=== PATIENT | female | born 1950 | race Caucasian/White ===

== ENCOUNTER → 2016-02-28 | Outpatient (CLI) | payer MEDICARE, MEDICAID ==
[2016-02-28] VITALS (11 sets, daily range): BP systolic 96–118; BP diastolic 60–80
[~2016-02-28] VITALS: Ht 30.5 cm; Wt 74.0 kg
[~2016-02-28] MED LIST: ALPR1TAB7 PO; CARV6.2551; CHOL20009 PO; CYAN100L PO; CYANOCOBALAMIN (B-12) 1000 MCG/1 ML VIAL IM ONE; CYANOCOBALAMIN (B-12) 1000 MCG/1 ML VIAL ONE; DIGO0.1262 PO; DOBUTamine 1000MCG/ML 250 ML IV ONE; FOLI1TAB6 PO; FURO20TA3 PO; LISI10TA6 PO; MULTTAB61 PO
[2016-02-28 16:21] LABS: Basophils # (auto) 0.1 uL; DEFINITIVE VIEW TRANSMISSION; Eosinophils # (auto) 0 uL; Eosinophils % (auto) 0.5 % (0.0-7.0); Hematocrit 36.4 % (36.0-46.0); Hemoglobin 11.1 g/dL (12.2-16.2); Lymphocytes # (auto) 1.3 uL; Lymphocytes % (auto) 16.5 % (10.0-50.0); Mean Corpuscular Hemoglobin 19.7 pg (28.0-32.0); Mean Corpuscular Hgb Conc. 30.6 g/dL (32.0-36.0); Mean Corpuscular Volume 64.3 fL (80.0-100.0); Mean Platelet Volume 9.6 fL (7.4-10.4); Monocytes # (auto) 0.8 uL; Monocytes % (auto) 9.5 % (0.0-12.0); Neutrophils # (auto) 5.8 uL; Neutrophils % (auto) 72.5 % (37.0-80.0); Platelet Count (auto) 216 10^3/uL (140-450); Red Cell Distribution Width 16.2 % (11.6-16.0)
== END | disposition home or self-care (01) ==
LOC: CHF HDHVI 10:49
PROVIDERS: ATTEND Internal Medicine Cardiovascular Disease
DX: T46.0X6D Underdosing of cardiac-stimulant glycosides and drugs of similar action, subsequent encounter (principal); D64.9 Anemia, unspecified
CPT/HCPCS: 36415; 80162; 85025; 96365; 96366; 96372; G0463

== ENCOUNTER → 2016-09-03 | Outpatient (CLI) | payer MEDICARE, MEDICAID ==
[~2016-09-03] MED LIST changes: -CYANOCOBALAMIN (B-12) 1000 MCG/1 ML VIAL IM ONE; -CYANOCOBALAMIN (B-12) 1000 MCG/1 ML VIAL ONE; -DOBUTamine 1000MCG/ML 250 ML IV ONE
[2016-09-03 15:00] VITALS: BP 152/88
[2016-09-03 17:15] VITALS: BP 139/82
== END | disposition home or self-care (01) ==
LOC: CHF HDHVI 16:41
PROVIDERS: ATTEND Internal Medicine Cardiovascular Disease
DX: R07.9 Chest pain, unspecified (principal)
CPT/HCPCS: G0463

== ENCOUNTER → 2016-10-13 | Outpatient (CLI) | payer MEDICARE, MEDICAID ==
[~2016-10-13] MED LIST changes: +CYANOCOBALAMIN (B-12) 1000 MCG/1 ML VIAL IM ONE; +CYANOCOBALAMIN (B-12) 1000 MCG/1 ML VIAL ONE
[2016-10-13 12:20] VITALS: BP 138/74
[2016-10-13 12:45] VITALS: BP 130/72
[2016-10-13 16:11] LABS: Basophils # (auto) 0.1 uL; Basophils % (auto) 1.1 % (0.0-2.0); CONDITION Y; DEFINITIVE SEE PRINTOUT; Eosinophils # (auto) 0 uL; Eosinophils % (auto) 0.1 % (0.0-7.0); Hematocrit 26.1 % (36.0-46.0); Lymphocytes # (auto) 0.7 uL; Lymphocytes % (auto) 11.1 % (10.0-50.0); Mean Corpuscular Hgb Conc. 30.7 g/dL (32.0-36.0); Mean Corpuscular Volume 65.1 fL (80.0-100.0); Mean Platelet Volume 10.9 fL (7.4-10.4); Monocytes # (auto) 0.6 uL; Monocytes % (auto) 9.9 % (0.0-12.0); Neutrophils % (auto) 77.8 % (37.0-80.0); Platelet Count (auto) 334 10^3/uL (140-450); Red Cell Distribution Width 16.8 % (11.6-16.0); SUSPECT SEE PRINTOUT; White Blood Cell 6.5 10^3/uL (4.4-10.8)
[2016-10-13 16:32] LABS: Albumin 4.2 g/dL (3.4-5.0); BUN/Creatinine Ratio 19.2; Bilirubin, Total 0.6 mg/dL (0.2-1.0); Calcium 9.3 mg/dL (8.5-10.1); Magnesium 2.2 mg/dL (1.6-2.6); Potassium 4.2 mmol/L (3.5-5.1); Total Protein 7.5 g/dL (6.4-8.2)
== END | disposition home or self-care (01) ==
LOC: CHF HDHVI 12:22
PROVIDERS: ATTEND Internal Medicine Cardiovascular Disease
DX: I25.10 Atherosclerotic heart disease of native coronary artery without angina pectoris (principal); I13.0 Hypertensive heart and chronic kidney disease with heart failure and stage 1 through stage 4 chronic kidney disease, or unspecified chronic kidney disease; I50.9 Heart failure, unspecified; N18.9 Chronic kidney disease, unspecified; D64.9 Anemia, unspecified; E55.9 Vitamin D deficiency, unspecified
CPT/HCPCS: 36415; 80053; 82306; 83735; 85025; 96372; G0463; J3420

== ENCOUNTER → 2017-03-17 | Outpatient (CLI) | payer MEDICARE, MEDICAID ==
[~2017-03-17] MED LIST changes: -CYANOCOBALAMIN (B-12) 1000 MCG/1 ML VIAL IM ONE; -CYANOCOBALAMIN (B-12) 1000 MCG/1 ML VIAL ONE
[2017-03-17 11:10] VITALS: BP 152/78
[2017-03-17 16:23] LABS: Basophils # (auto) 0.1 uL; Basophils % (auto) 1.3 % (0.0-2.0); Eosinophils # (auto) 0.1 uL; Eosinophils % (auto) 0.9 % (0.0-7.0); Hematocrit 23.3 % (36.0-46.0); Hemoglobin 7.1 g/dL (12.2-16.2); Lymphocytes # (auto) 0.7 uL; Mean Corpuscular Hemoglobin 19.4 pg (28.0-32.0); Mean Corpuscular Hgb Conc. 30.4 g/dL (32.0-36.0); Mean Corpuscular Volume 63.7 fL (80.0-100.0); Monocytes # (auto) 0.4 uL; Monocytes % (auto) 6.1 % (0.0-12.0); Neutrophils % (auto) 81.7 % (37.0-80.0); Nucleated Red Blood Cells % 0.2 %; Platelet Count (auto) 279 10^3/uL (140-450); Red Blood Cells 3.66 10^6/uL (4.0-5.20); White Blood Cell 7.3 10^3/uL (4.4-10.8)
[2017-03-17 16:29] LABS: Potassium 3.8 mmol/L (3.5-5.1)
[2017-03-17 16:36] LABS: Ferritin 79.2 ng/mL (10-322)
[2017-03-17 16:37] LABS: Folate (Folic Acid) > 24.00 ng/mL (5.38-24)
== END | disposition home or self-care (01) ==
LOC: CHF HDHVI 11:35
PROVIDERS: ATTEND Internal Medicine Cardiovascular Disease
DX: E55.9 Vitamin D deficiency, unspecified (principal); D64.9 Anemia, unspecified; E87.5 Hyperkalemia; E61.1 Iron deficiency; R94.4 Abnormal results of kidney function studies; R79.89 Other specified abnormal findings of blood chemistry; D51.9 Vitamin B12 deficiency anemia, unspecified; D52.9 Folate deficiency anemia, unspecified; I50.9 Heart failure, unspecified
CPT/HCPCS: 36415; 82306; 82565; 82607; 82728; 82746; 83540; 83735; 84132; 84520; 85025; 85045; 93701; G0463

== ENCOUNTER → 2017-03-19 | Outpatient (CLI) | payer MEDICARE, MEDICAID ==
[~2017-03-19] VITALS: Ht 170.2 cm; Wt 69.9 kg
[2017-03-20] VITALS (10 sets, daily range): BP systolic 136–169; BP diastolic 78–98
== END | disposition home or self-care (01) ==
LOC: LAB 13:10
PROVIDERS: ATTEND Internal Medicine Cardiovascular Disease
DX: I10 Essential (primary) hypertension (principal)
CPT/HCPCS: 86850; 86900; 86901; 86920

== ENCOUNTER 2017-03-20 08:23 | Day surgery (SDC) | payer MEDICARE, MEDICAID ==
[2017-03-20] MEDS ORDERED: CARVEDILOL 3.125 MG TAB PO ONE (11:15)
[2017-03-20] MEDS ORDERED: FUROSEMIDE 20 MG/2 ML VIAL IV ONE (11:15)
== END 2017-03-20 15:40 | disposition home or self-care (01) ==
LOC: CATH 08:23
PROVIDERS: ATTEND Internal Medicine Cardiovascular Disease
DX: D64.9 Anemia, unspecified (principal)
CPT/HCPCS: 36430; J1940; J7040

== ENCOUNTER → 2017-04-01 | Outpatient (CLI) | payer MEDICARE, MEDICAID ==
[~2017-04-01] VITALS: Ht 170.2 cm; Wt 70.3 kg
[~2017-04-01] MED LIST changes: +ADENOSINE 59 MG in GIVE UN-DILUTED 0 ML IV ONE; +ADENOSINE 90 MG/30 ML INJ IV ONE
[2017-04-01 12:46] LABS: % Iron Saturation 40.8 % (15-50)
[2017-04-01 12:57] LABS: Ferritin 140.9 ng/mL (10-322)
== END | disposition home or self-care (01) ==
LOC: Rad HDHVI 08:06
PROVIDERS: ATTEND Internal Medicine Cardiovascular Disease
DX: I25.10 Atherosclerotic heart disease of native coronary artery without angina pectoris (principal); D64.9 Anemia, unspecified; R07.9 Chest pain, unspecified; D52.9 Folate deficiency anemia, unspecified; D51.9 Vitamin B12 deficiency anemia, unspecified; R79.89 Other specified abnormal findings of blood chemistry; N19 Unspecified kidney failure; Z94.1 Heart transplant status
CPT/HCPCS: 36415; 78452; 82607; 82728; 83540; 83550; 85045; 93005; 96374; 96375; A9500; J0153

== ENCOUNTER → 2017-04-20 | Outpatient (CLI) | payer MEDICARE, MEDICAID ==
[~2017-04-20] MED LIST changes: -ADENOSINE 59 MG in GIVE UN-DILUTED 0 ML IV ONE; -ADENOSINE 90 MG/30 ML INJ IV ONE
[2017-04-20 16:30] LABS: Basophils # (auto) 0.1 uL; Eosinophils # (auto) 0 uL; Eosinophils % (auto) 0.4 % (0.0-7.0); Mean Corpuscular Hemoglobin 20.5 pg (28.0-32.0); Monocytes # (auto) 0.4 uL
[2017-04-20 16:31] LABS: Basophils % (auto) 0.7 % (0.0-2.0); Hematocrit 30.3 % (36.0-46.0); Hemoglobin 9.3 g/dL (12.2-16.2); Lymphocytes # (auto) 0.9 uL; Lymphocytes % (auto) 9.6 % (10.0-50.0); Mean Corpuscular Hgb Conc. 30.6 g/dL (32.0-36.0); Mean Corpuscular Volume 67.1 fL (80.0-100.0); Monocytes % (auto) 3.9 % (0.0-12.0); Neutrophils # (auto) 8.4 uL; Neutrophils % (auto) 85.4 % (37.0-80.0); Nucleated Red Blood Cells % 0.2 %; Platelet Count (auto) 237 10^3/uL (140-450); Red Blood Cells 4.51 10^6/uL (4.0-5.20); White Blood Cell 9.8 10^3/uL (4.4-10.8)
[2017-04-20 16:35] LABS: Red Cell Distribution Width 20.5 % (11.8-14.3)
[2017-04-20 16:42] LABS: Albumin 4.1 g/dL (3.4-5.0); BUN/Creatinine Ratio 17.7; Bilirubin, Direct 0.1 mg/dL (0-0.2); Bilirubin, Total 0.5 mg/dL (0.2-1.0); Calcium 9.6 mg/dL (8.5-10.1); Potassium 3.8 mmol/L (3.5-5.1); Total Protein 7.7 g/dL (6.4-8.2)
== END | disposition home or self-care (01) ==
LOC: LAB 12:50
PROVIDERS: ATTEND Internal Medicine Cardiovascular Disease
DX: I10 Essential (primary) hypertension (principal); D50.8 Other iron deficiency anemias; D64.9 Anemia, unspecified; E78.00 Pure hypercholesterolemia, unspecified; K74.1 Hepatic sclerosis
CPT/HCPCS: 36415; 80053; 80061; 80076; 82668; 85025

== ENCOUNTER → 2017-05-04 | Outpatient (CLI) | payer MEDICARE, MEDICAID ==
[2017-05-04 13:00] VITALS: BP 130/72
[2017-05-04 16:08] LABS: Basophils # (auto) 0.1 uL; Eosinophils # (auto) 0.1 uL; Hematocrit 25.6 % (36.0-46.0); Hemoglobin 8.1 g/dL (12.2-16.2); Lymphocytes # (auto) 0.9 uL; White Blood Cell 7.1 10^3/uL (4.4-10.8)
[2017-05-04 16:11] LABS: Basophils % (auto) 1.2 % (0.0-2.0); Eosinophils % (auto) 0.9 % (0.0-7.0); Lymphocytes % (auto) 13.3 % (10.0-50.0); Mean Corpuscular Hemoglobin 20.5 pg (28.0-32.0); Mean Corpuscular Hgb Conc. 31.5 g/dL (32.0-36.0); Monocytes # (auto) 0.5 uL; Monocytes % (auto) 6.9 % (0.0-12.0); Neutrophils # (auto) 5.5 uL; Neutrophils % (auto) 77.7 % (37.0-80.0); Nucleated Red Blood Cells % 0.3 %; Platelet Count (auto) 219 10^3/uL (140-450); Red Blood Cells 3.94 10^6/uL (4.0-5.20); Red Cell Distribution Width 19.5 % (11.8-14.3)
[2017-05-04 16:21] LABS: Albumin 3.7 g/dL (3.4-5.0); BUN/Creatinine Ratio 20.4; Bilirubin, Total 0.5 mg/dL (0.2-1.0); Magnesium 2.4 mg/dL (1.6-2.6); Phosphorus 3.9 mg/dL (2.5-4.90); Potassium 4.1 mmol/L (3.5-5.1)
== END | disposition home or self-care (01) ==
LOC: CHF HDHVI 12:28
PROVIDERS: ATTEND Internal Medicine Cardiovascular Disease
DX: I10 Essential (primary) hypertension (principal); D64.9 Anemia, unspecified; E83.30 Disorder of phosphorus metabolism, unspecified; E83.40 Disorders of magnesium metabolism, unspecified; Z94.1 Heart transplant status
CPT/HCPCS: 36415; 80053; 80197; 83735; 84100; 85025

== ENCOUNTER → 2017-08-17 | Outpatient (CLI) | payer MEDICARE, MEDICAID | END | disposition home or self-care (01) | LOC: Rad HDHVI 16:16 | PROVIDERS: ATTEND Internal Medicine Cardiovascular Disease | DX: D09.9 Carcinoma in situ, unspecified (principal); I13.0 Hypertensive heart and chronic kidney disease with heart failure and stage 1 through stage 4 chronic kidney disease, or unspecified chronic kidney disease; I50.21 Acute systolic (congestive) heart failure; N18.9 Chronic kidney disease, unspecified; I25.10 Atherosclerotic heart disease of native coronary artery without angina pectoris; E78.00 Pure hypercholesterolemia, unspecified | CPT/HCPCS: 71275; 74178 ==

== ENCOUNTER → 2017-08-25 | Outpatient (CLI) | payer MEDICARE, MEDICAID ==
[2017-08-25 13:55] VITALS: BP 159/84
[2017-08-25 14:24] VITALS: BP 141/93
[2017-08-25 16:11] LABS: BUN/Creatinine Ratio 17.8; Calcium 9.3 mg/dL (8.5-10.1); Potassium 4.1 mmol/L (3.5-5.1)
[2017-08-25 16:14] LABS: Hemoglobin 8.2 g/dL (12.2-16.2); Mean Corpuscular Hemoglobin 19.9 pg (28.0-32.0); Red Blood Cells 4.14 10^6/uL (4.0-5.20); White Blood Cell 5.9 10^3/uL (4.4-10.8)
[2017-08-25 16:17] LABS: Hematocrit 26.3 % (36.0-46.0); Mean Corpuscular Hgb Conc. 31.3 g/dL (32.0-36.0); Mean Corpuscular Volume 63.5 fL (80.0-100.0); Platelet Count (auto) 230 10^3/uL (140-450); Red Cell Distribution Width 16.4 % (11.8-14.3)
[2017-08-25 16:36] LABS: Basophils % (manual) 0 (0.0-2.0); Blast Cells 0; Metamyelocytes % 0; Myelocytes % 0; Promyelocytes % 0; Reactive Lymphocytes 0
[2017-08-25 17:43] LABS: Band Neutrophils % (manual) 1; Eosinophils % (manual) 2 (0-7); Lymphocytes % (manual) 10 (10.0-50.0); Monocytes % (manual) 8 (0-12)
== END | disposition home or self-care (01) ==
LOC: CHF HDHVI 14:05
PROVIDERS: ATTEND Internal Medicine Cardiovascular Disease
DX: R91.1 Solitary pulmonary nodule (principal); I11.0 Hypertensive heart disease with heart failure; I50.9 Heart failure, unspecified; E55.9 Vitamin D deficiency, unspecified; D64.9 Anemia, unspecified; I25.10 Atherosclerotic heart disease of native coronary artery without angina pectoris; E78.00 Pure hypercholesterolemia, unspecified; Z94.1 Heart transplant status; Z79.899 Other long term (current) drug therapy
CPT/HCPCS: 36415; 80048; 80197; 82306; 85007; 85027; G0463

== ENCOUNTER → 2018-08-25 | Outpatient (CLI) | payer MEDICARE, MEDICAID | END | disposition home or self-care (01) | LOC: Rad HDHVI 09:29 | PROVIDERS: ATTEND Internal Medicine Cardiovascular Disease | DX: I25.10 Atherosclerotic heart disease of native coronary artery without angina pectoris (principal); I77.819 Aortic ectasia, unspecified site | CPT/HCPCS: 71250 ==

== ENCOUNTER → 2018-12-15 | Outpatient (CLI) | payer MEDICARE, MEDICAID ==
[~2018-12-15] MED LIST changes: +cefTRIAXone 1GM/50ML D5W 50 ML IV ONE; +cefTRIAXone SOD 1,000 MG VL ONE
--- NOTE | 2018-12-15 12:37 | NUR ---
PT. TO CLINIC FROM BACK OFFICE FOR IVPB ABX PER DR. CORDERO FOR MULTIPLE DAYS. PT HX. KNOWN TO THIS RN AND IS A HEART TRANSPLANT PT. ORDERS RECEIVED AND CARRIED OUT.
[2018-12-15 12:40] VITALS: BP 139/68
--- NOTE | 2018-12-15 12:42 | NUR ---
IV insertion IV access obtained, via clean sterile technique by inserting 22 gauge catheter at after attempt(s). IV secured properly. No trauma to site. Patient tolerated procedure well. LABS DRAWN AND SENT.
--- NOTE | 2018-12-15 13:00 | NUR ---
PT. TO AND FROM XRAY VIA AMBULATION. IV ABX STARTED PER MD ORDER.
[2018-12-15 13:38] LABS: Basophils # (auto) 0.1 uL; Eosinophils # (auto) 0.1 uL; Mean Corpuscular Volume 58.1 fL (80.0-100.0); Red Cell Distribution Width 16.4 % (11.8-14.3)
[2018-12-15 13:40] LABS: Basophils % (auto) 0.9 % (0.0-2.0); Eosinophils % (auto) 0.7 % (0.0-7.0); Hematocrit 26.2 % (36.0-46.0); Hemoglobin 7.9 g/dL (12.2-16.2); Lymphocytes % (auto) 9.8 % (10.0-50.0); Mean Corpuscular Hemoglobin 17.5 pg (28.0-32.0); Mean Corpuscular Hgb Conc. 30.1 g/dL (32.0-36.0); Monocytes # (auto) 0.7 uL; Monocytes % (auto) 7.2 % (0.0-12.0); Neutrophils % (auto) 81.4 % (37.0-80.0); Platelet Count (auto) 400 10^3/uL (140-450); Red Blood Cells 4.52 10^6/uL (4.0-5.20); White Blood Cell 9.8 10^3/uL (4.4-10.8)
[2018-12-15 13:49] LABS: BUN/Creatinine Ratio 12.6; Calcium 9.4 mg/dL (8.5-10.1); Magnesium 2.5 mg/dL (1.6-2.6); Potassium 4.4 mmol/L (3.5-5.1)
--- NOTE | 2018-12-15 14:24 | NUR ---
MEDS: ROCEPHIN COMPLETED. HEPLOCK FLUSHED . PT. TOLERATED PROCEDURE WELL. RX FOR Z-PACK CALLED TO PT'S PHARM. PER MD ORDER. HL FLUSHED WITH 150 UNITS OF HEPARIN AND SITE SECURED FOR REPEAT USE TOMORROW. ECHO SET UP FOR TOMORROW WHILE PT. HERE IN CLINIC PER [facility] REQUEST PRIOR TO HER NEXT VIST NEXT WEEK. PT. GIVEN COPY OF LABS WITH KNOWN HX OF ANEMIA, AND CRI. PT. TO CALL THIS RN BACK WITH MORE RECENT LAB WORK FROM [facility]. DR CORDERO ADVISED.
[2018-12-15 14:30] VITALS: BP 149/76
--- NOTE | 2018-12-15 14:30 | NUR ---
Discharge Instructions See e-MAR for any mediations given with this visit. Patient education given on disease process. Patient verbalized understanding. Previous labs reviewed. Patient discharged in stable condition with after care instructions and follow up appointment.
== END | disposition home or self-care (01) ==
LOC: Rad HDHVI 12:42
PROVIDERS: ATTEND Internal Medicine Cardiovascular Disease
DX: J18.9 Pneumonia, unspecified organism (principal); E83.40 Disorders of magnesium metabolism, unspecified; I10 Essential (primary) hypertension
CPT/HCPCS: 36415; 71046; 80048; 83735; 85025; 96365; G0463; J0696; J1642; 96374

== ENCOUNTER → 2018-12-16 | Outpatient (CLI) | payer MEDICARE, MEDICAID ==
[~2018-12-16] MED LIST changes: +CEFTRIAXONE SODIUM 1 GM in D5W 5% 50 ML IV ONE; -cefTRIAXone 1GM/50ML D5W 50 ML IV ONE
[2018-12-16 12:37] VITALS: BP 139/68
--- NOTE | 2018-12-16 13:00 | NUR ---
CHF ARRIVED TO CLINIC FOR ABX THERAPY , PRODUCTIVE COUGH , VSS
[2018-12-16 14:30] VITALS: BP 149/76
--- NOTE | 2018-12-16 15:01 | NUR ---
Discharge Instructions See e-MAR for any mediations given with this visit. Patient education given on disease process. Patient verbalized understanding. Previous labs reviewed. Patient discharged in stable condition with after care instructions and follow up appointment. MEDICATIONS ROCEPHINE 1V MED NEB X 1 PROBIOTIC PO
--- NOTE | 2018-12-29 10:16 | NUR ---
LATE ENTRY FOR 12/16/18 JUVENTINO [id number]
== END | disposition home or self-care (01) ==
LOC: CHF HDHVI 14:16
PROVIDERS: ATTEND Internal Medicine Cardiovascular Disease
DX: J06.9 Acute upper respiratory infection, unspecified (principal); J98.8 Other specified respiratory disorders; J44.9 Chronic obstructive pulmonary disease, unspecified; I10 Essential (primary) hypertension; R53.83 Other fatigue; Z94.1 Heart transplant status
CPT/HCPCS: 93306; 94640; 96365; G0463; J0696; J7060

== ENCOUNTER → 2018-12-17 | Outpatient (CLI) | payer MEDICARE, MEDICAID ==
[~2018-12-17] MED LIST changes: -CEFTRIAXONE SODIUM 1 GM in D5W 5% 50 ML IV ONE; +LIDOCAINE 1% (LOCAL ANESTH.) PF 5ml SDV ONE; +cefTRIAXone W LIDOCAINE 1 GM IM IM ONE
[2018-12-17 14:00] VITALS: BP 142/82
[2018-12-17 14:20] VITALS: BP 141/78
--- NOTE | 2018-12-17 14:20 | NUR ---
CHF CLINIC Discharge Instructions See e-MAR for any mediations given with this visit. Patient education given on disease process. Patient verbalized understanding. Previous labs reviewed. Patient discharged in stable condition with after care instructions and follow up appointment. NOTE JUVENTINO SIMMONS F/U WITH DR CORDERO ON 12/22/18
[2018-12-17 16:12] LABS: Potassium 3.4 mmol/L (3.5-5.1)
== END | disposition home or self-care (01) ==
LOC: CHF HDHVI 14:13
PROVIDERS: ATTEND Internal Medicine Cardiovascular Disease
DX: J06.9 Acute upper respiratory infection, unspecified (principal); R94.4 Abnormal results of kidney function studies; E87.6 Hypokalemia; I10 Essential (primary) hypertension
CPT/HCPCS: 36415; 82565; 84132; 84520; 96372; G0463; J0696

== ENCOUNTER → 2019-04-04 | Outpatient (CLI) | payer MEDICARE, MEDICAID ==
[~2019-04-04] MED LIST changes: -LIDOCAINE 1% (LOCAL ANESTH.) PF 5ml SDV ONE; -cefTRIAXone SOD 1,000 MG VL ONE; -cefTRIAXone W LIDOCAINE 1 GM IM IM ONE
[2019-04-04 16:00] LABS: Urine Blood Negative /uL (Negative); Urine Specific Gravity 1.012 (1.001-1.035)
[2019-04-04 16:15] LABS: Basophils # (auto) 0.1 uL; Eosinophils # (auto) 0.1 uL; Lymphocytes # (auto) 1.2 uL; White Blood Cell 4.8 10^3/uL (4.4-10.8)
[2019-04-04 16:18] LABS: Basophils % (auto) 1.5 % (0.0-2.0); Eosinophils % (auto) 1.3 % (0.0-7.0); Hematocrit 31.6 % (36.0-46.0); Hemoglobin 9.8 g/dL (12.2-16.2); Lymphocytes % (auto) 24.4 % (10.0-50.0); Mean Corpuscular Hemoglobin 18.9 pg (28.0-32.0); Mean Corpuscular Volume 60.9 fL (80.0-100.0); Monocytes # (auto) 0.5 uL; Monocytes % (auto) 9.9 % (0.0-12.0); Neutrophils % (auto) 62.9 % (37.0-80.0); Platelet Count (auto) 256 10^3/uL (140-450); Red Blood Cells 5.19 10^6/uL (4.0-5.20); Red Cell Distribution Width 17.5 % (11.8-14.3)
[2019-04-04 16:24] LABS: Albumin 4.2 g/dL (3.4-5.0); Calcium 9.1 mg/dL (8.5-10.1); Potassium 4.2 mmol/L (3.5-5.1)
[2019-04-04 16:28] LABS: BUN/Creatinine Ratio 17.5; Bilirubin, Total 0.6 mg/dL (0.2-1.0)
[2019-04-04 16:35] LABS: Free T4 (Free Thyroxine) 1.22 ng/dL (0.89-1.76)
== END | disposition home or self-care (01) ==
LOC: LAB 13:42
PROVIDERS: ATTEND Internal Medicine Cardiovascular Disease
DX: E03.9 Hypothyroidism, unspecified (principal); K90.9 Intestinal malabsorption, unspecified; N39.0 Urinary tract infection, site not specified; D51.9 Vitamin B12 deficiency anemia, unspecified; Z94.1 Heart transplant status; Z79.899 Other long term (current) drug therapy
CPT/HCPCS: 36415; 80053; 80061; 80197; 81003; 82306; 82542; 82607; 83036; 84439; 84443; 85025

== ENCOUNTER → 2019-07-27 | Outpatient (CLI) | payer MEDICARE, MEDICAID ==
[~2019-07-27] MED LIST changes: +MULT-1018 PO; -MULTTAB61 PO
[2019-07-27 10:42] VITALS: BP 132/78
--- NOTE | 2019-07-27 10:42 | NUR ---
CHF PT ARRIVED TO THE CLINIC FOR OUTSIDE LAB DRAW FOR [facility]. A/OX4 AND AMBULATORY.
[2019-07-27 11:30] VITALS: BP 132/78
--- NOTE | 2019-07-27 11:30 | NUR ---
Discharge Instructions See e-MAR for any mediations given with this visit. Patient education given on disease process. Patient verbalized understanding. Previous labs reviewed. Patient discharged in stable condition with after care instructions and follow up appointment. TO RETURN TO CLINIC ON 08/08/19 FOR F/U AND EVAL.
[2019-07-27 16:01] LABS: Urine Blood Negative /uL (Negative); Urine Specific Gravity 1.004 (1.001-1.035)
[2019-07-27 16:16] LABS: Albumin 3.9 g/dL (3.4-5.0); Basophils # (auto) 0 10 ^3/uL (0-0.2); Calcium 8.6 mg/dL (8.5-10.1); Eosinophils # (auto) 0 10 ^3/uL (0-0.8); Hemoglobin 8.7 g/dL (12.2-16.2); Magnesium 2.7 mg/dL (1.6-2.6); Nucleated Red Blood Cells % 0.2 %; Potassium 3.8 mmol/L (3.5-5.1); White Blood Cell 4.4 10^3/uL (4.4-10.8)
[2019-07-27 16:18] LABS: Creatinine, Urine 27 mg/dL (30.0-125.0); Protein, Urine 5.7 mg/dL (0.0-11.9)
[2019-07-27 16:20] LABS: Basophils % (auto) 0.9 % (0.0-2.0); Eosinophils % (auto) 0.8 % (0.0-7.0); Hematocrit 28.3 % (36.0-46.0); Lymphocytes # (auto) 0.8 10 ^3/uL (0.4-5.4); Lymphocytes % (auto) 18.1 % (10.0-50.0); Mean Corpuscular Hemoglobin 18.7 pg (28.0-32.0); Mean Corpuscular Hgb Conc. 30.9 g/dL (32.0-36.0); Mean Corpuscular Volume 60.7 fL (80.0-100.0); Monocytes # (auto) 0.5 10 ^3/uL (0-1.3); Monocytes % (auto) 11.4 % (0.0-12.0); Neutrophils % (auto) 68.8 % (37.0-80.0); Platelet Count (auto) 245 10^3/uL (140-450); Red Blood Cells 4.65 10^6/uL (4.0-5.20); Red Cell Distribution Width 16.7 % (11.8-14.3)
[2019-07-27 16:21] LABS: BUN/Creatinine Ratio 15.9; Bilirubin, Total 0.6 mg/dL (0.2-1.0); Phosphorus 4.3 mg/dL (2.5-4.90); Total Protein 7.6 g/dL (6.4-8.2)
== END | disposition home or self-care (01) ==
LOC: CHF HDHVI 10:32
PROVIDERS: ATTEND Internal Medicine Cardiovascular Disease
DX: Z48.298 Encounter for aftercare following other organ transplant (principal); Z51.81 Encounter for therapeutic drug level monitoring; D89.9 Disorder involving the immune mechanism, unspecified; I10 Essential (primary) hypertension; Z94.1 Heart transplant status
CPT/HCPCS: 36415; 80053; 81003; 82043; 82570; 83735; 84100; 84156; 84439; 84443; 85025; G0463

== ENCOUNTER → 2019-11-01 | Outpatient (CLI) | payer MEDICARE, MEDICAID ==
[~2019-11-01] MED LIST changes: +LISI-648 PO; -LISI10TA6 PO
== END | disposition home or self-care (01) ==
LOC: Rad HDHVI 11:04
PROVIDERS: ATTEND Internal Medicine Cardiovascular Disease
DX: R00.2 Palpitations (principal); R07.89 Other chest pain; Z94.1 Heart transplant status
CPT/HCPCS: 93306

== ENCOUNTER → 2020-04-02 | Outpatient (CLI) | payer MEDICARE, MEDICAID ==
[2020-04-02 14:26] LABS: Urine Blood Negative /uL (Negative)
[2020-04-02 14:31] LABS: Potassium 4.5 mmol/L (3.5-5.1)
[2020-04-02 14:39] LABS: Albumin 3.9 g/dL (3.4-5.0); BUN/Creatinine Ratio 15.6; Bilirubin, Total 0.6 mg/dL (0.2-1.0); Total Protein 7.9 g/dL (6.4-8.2)
[2020-04-02 15:36] LABS: Free T4 (Free Thyroxine) 1.25 ng/dL (0.89-1.76)
[2020-04-02 17:17] LABS: Basophils # (auto) 0.1 10 ^3/uL (0-0.2); Basophils % (auto) 1.3 % (0.0-2.0); Eosinophils # (auto) 0.1 10 ^3/uL (0-0.8); Eosinophils % (auto) 0.9 % (0.0-7.0); Hematocrit 29.4 % (36.0-46.0); Hemoglobin 9.3 g/dL (12.2-16.2); Lymphocytes # (auto) 0.9 10 ^3/uL (0.4-5.4); Mean Corpuscular Hemoglobin 18.6 pg (28.0-32.0); Mean Corpuscular Hgb Conc. 31.5 g/dL (32.0-36.0); Mean Corpuscular Volume 59.1 fL (80.0-100.0); Monocytes # (auto) 0.7 10 ^3/uL (0-1.3); Monocytes % (auto) 11.4 % (0.0-12.0); Neutrophils # (auto) 4.2 10 ^3/uL (1.6-8.6); Neutrophils % (auto) 71.4 % (37.0-80.0); Platelet Count (auto) 211 10^3/uL (140-450); Red Blood Cells 4.98 10^6/uL (4.0-5.20); Red Cell Distribution Width 17.2 % (11.8-14.3); White Blood Cell 5.9 10^3/uL (4.4-10.8)
== END | disposition home or self-care (01) ==
LOC: LAB 11:34
PROVIDERS: ATTEND Internal Medicine Cardiovascular Disease
DX: D51.3 Other dietary vitamin B12 deficiency anemia (principal); I10 Essential (primary) hypertension; E11.9 Type 2 diabetes mellitus without complications; E55.9 Vitamin D deficiency, unspecified; D64.9 Anemia, unspecified; R00.2 Palpitations; R53.1 Weakness; R30.0 Dysuria
CPT/HCPCS: 36415; 80053; 80061; 80197; 81003; 82306; 82542; 82607; 83036; 84439; 84443; 85025; 87086

== ENCOUNTER → 2020-06-27 | Outpatient (CLI) | payer MEDICARE, MEDICAID ==
[~2020-06-27] MED LIST changes: -LISI-648 PO; +LISI-716 PO
[2020-06-27 15:32] LABS: Urine Blood Negative /uL (Negative); Urine Specific Gravity 1.013 (1.001-1.035)
[2020-06-27 15:35] LABS: Basophils # (auto) 0.1 10 ^3/uL (0-0.2); Basophils % (auto) 0.9 % (0.0-2.0); Eosinophils # (auto) 0.1 10 ^3/uL (0-0.8); Eosinophils % (auto) 1.2 % (0.0-7.0); Hematocrit 32.9 % (36.0-46.0); Hemoglobin 10.1 g/dL (12.2-16.2); Lymphocytes # (auto) 0.9 10 ^3/uL (0.4-5.4); Lymphocytes % (auto) 15.6 % (10.0-50.0); Mean Corpuscular Hemoglobin 18.4 pg (28.0-32.0); Mean Corpuscular Hgb Conc. 30.7 g/dL (32.0-36.0); Mean Corpuscular Volume 59.7 fL (80.0-100.0); Monocytes # (auto) 0.7 10 ^3/uL (0-1.3); Monocytes % (auto) 10.7 % (0.0-12.0); Neutrophils # (auto) 4.3 10 ^3/uL (1.6-8.6); Neutrophils % (auto) 71.6 % (37.0-80.0); Nucleated Red Blood Cells % 0.2 %; Platelet Count (auto) 190 10^3/uL (140-450); Red Blood Cells 5.51 10^6/uL (4.0-5.20); Red Cell Distribution Width 16.9 % (11.8-14.3); White Blood Cell 6.1 10^3/uL (4.4-10.8)
[2020-06-27 15:38] LABS: Albumin 3.9 g/dL (3.4-5.0); Calcium 9.3 mg/dL (8.5-10.1); Potassium 4.2 mmol/L (3.5-5.1)
[2020-06-27 15:44] LABS: BUN/Creatinine Ratio 28.3; Bilirubin, Total 0.6 mg/dL (0.2-1.0); Total Protein 7.4 g/dL (6.4-8.2)
[2020-06-27 15:46] LABS: Free T4 (Free Thyroxine) 1.44 ng/dL (0.89-1.76)
== END | disposition home or self-care (01) ==
LOC: LAB 11:23
PROVIDERS: ATTEND Internal Medicine Cardiovascular Disease
DX: D51.3 Other dietary vitamin B12 deficiency anemia (principal); I10 Essential (primary) hypertension; E11.9 Type 2 diabetes mellitus without complications; E55.9 Vitamin D deficiency, unspecified; D64.9 Anemia, unspecified; R00.2 Palpitations; R53.1 Weakness; R30.0 Dysuria; Z48.298 Encounter for aftercare following other organ transplant; Z94.1 Heart transplant status
CPT/HCPCS: 36415; 80053; 80061; 81003; 82306; 82607; 83036; 84439; 84443; 85025

== ENCOUNTER → 2021-02-27 | Outpatient (CLI) | payer MEDICARE, MEDICAID ==
[~2021-02-27] MED LIST changes: +CYANOCOBALAMIN (B-12) 1000 MCG/1 ML VIAL IM ONE; +CYANOCOBALAMIN (B-12) 1000 MCG/1 ML VIAL ONE
[2021-02-27 10:05] VITALS: BP 146/82
[2021-02-27 10:44] VITALS: BP 147/60
[2021-02-27 11:50] LABS: Basophils # (auto) 0.1 10 ^3/uL (0-0.2); Basophils % (auto) 1.3 % (0.0-2.0); Eosinophils # (auto) 0.1 10 ^3/uL (0-0.8); Eosinophils % (auto) 1.2 % (0.0-7.0); Hemoglobin 9.7 g/dL (12.2-16.2); Lymphocytes # (auto) 1.7 10 ^3/uL (0.4-5.4); Lymphocytes % (auto) 24.7 % (10.0-50.0); Mean Corpuscular Hemoglobin 18.5 pg (28.0-32.0); Mean Corpuscular Hgb Conc. 31.1 g/dL (32.0-36.0); Mean Corpuscular Volume 59.5 fL (80.0-100.0); Monocytes # (auto) 0.9 10 ^3/uL (0-1.3); Monocytes % (auto) 13.1 % (0.0-12.0); Neutrophils % (auto) 59.7 % (37.0-80.0); Nucleated Red Blood Cells % 0.1 %; Red Blood Cells 5.22 10^6/uL (4.0-5.20); Red Cell Distribution Width 17.7 % (11.8-14.3); White Blood Cell 6.7 10^3/uL (4.4-10.8)
[2021-02-27 12:12] LABS: INR 0.99 (0.9-1.15); Partial Thromboplastin Time 23.4 sec (23.6-33.0)
[2021-02-27 12:20] LABS: Albumin 3.7 g/dL (3.4-5.0); Calcium 8.9 mg/dL (8.5-10.1); Magnesium 3.6 mg/dL (1.6-2.6); Potassium 3.8 mmol/L (3.5-5.1)
[2021-02-27 12:23] LABS: BUN/Creatinine Ratio 28.5; Bilirubin, Total 0.6 mg/dL (0.2-1.0)
== END | disposition home or self-care (01) ==
LOC: CHF HDHVI 10:02
PROVIDERS: ATTEND Internal Medicine Cardiovascular Disease
DX: D51.8 Other vitamin B12 deficiency anemias (principal); R53.83 Other fatigue; I11.0 Hypertensive heart disease with heart failure; I50.23 Acute on chronic systolic (congestive) heart failure; E11.9 Type 2 diabetes mellitus without complications; Z79.899 Other long term (current) drug therapy
CPT/HCPCS: 36415; 80053; 83735; 85025; 85610; 85730; 93005; 96372; G0463; J3420

== ENCOUNTER → 2021-04-17 | Outpatient (CLI) | payer MEDICARE, MEDICAID ==
[~2021-04-17] MED LIST changes: -CYANOCOBALAMIN (B-12) 1000 MCG/1 ML VIAL IM ONE; -CYANOCOBALAMIN (B-12) 1000 MCG/1 ML VIAL ONE
[2021-04-17 15:45] LABS: Basophils # (auto) 0 10 ^3/uL (0-0.2); Basophils % (auto) 0.8 % (0.0-2.0); Eosinophils # (auto) 0 10 ^3/uL (0-0.8); Eosinophils % (auto) 0.8 % (0.0-7.0); Hematocrit 31.3 % (36.0-46.0); Hemoglobin 9.7 g/dL (12.2-16.2); Lymphocytes # (auto) 0.8 10 ^3/uL (0.4-5.4); Mean Corpuscular Hemoglobin 18.7 pg (28.0-32.0); Mean Corpuscular Volume 60.5 fL (80.0-100.0); Monocytes # (auto) 0.5 10 ^3/uL (0-1.3); Neutrophils # (auto) 4.1 10 ^3/uL (1.6-8.6); Neutrophils % (auto) 74.4 % (37.0-80.0); Nucleated Red Blood Cells % 0.1 %; Red Blood Cells 5.17 10^6/uL (4.0-5.20); Red Cell Distribution Width 17.3 % (11.8-14.3); Urine Blood Negative /uL (Negative); Urine Specific Gravity 1.007 (1.001-1.035); White Blood Cell 5.5 10^3/uL (4.4-10.8)
[2021-04-17 15:59] LABS: Albumin 4.1 g/dL (3.4-5.0); Calcium 9.7 mg/dL (8.5-10.1); Potassium 3.8 mmol/L (3.5-5.1)
[2021-04-17 16:02] LABS: BUN/Creatinine Ratio 33.9; Bilirubin, Total 0.6 mg/dL (0.2-1.0); Total Protein 7.4 g/dL (6.4-8.2)
[2021-04-17 16:08] LABS: Free T4 (Free Thyroxine) 1.21 ng/dL (0.89-1.76)
== END | disposition home or self-care (01) ==
LOC: CHF HDHVI 13:18
PROVIDERS: ATTEND Internal Medicine Cardiovascular Disease
DX: E11.9 Type 2 diabetes mellitus without complications (principal); D51.3 Other dietary vitamin B12 deficiency anemia; D64.9 Anemia, unspecified; E55.9 Vitamin D deficiency, unspecified; I10 Essential (primary) hypertension; R00.2 Palpitations; R53.1 Weakness; R30.0 Dysuria
CPT/HCPCS: 36415; 80053; 80061; 81003; 82306; 82607; 83036; 84439; 84443; 85025

== ENCOUNTER → 2021-10-04 | Outpatient (CLI) | payer MEDICARE, MEDICAID | END | disposition home or self-care (01) | LOC: Rad HDHVI 11:05 | PROVIDERS: ATTEND Internal Medicine Cardiovascular Disease | DX: I51.7 Cardiomegaly (principal); R00.2 Palpitations | CPT/HCPCS: 93306 ==

== ENCOUNTER → 2021-10-18 | Outpatient (CLI) | payer MEDICARE, MEDICAID ==
[2021-10-18 13:21] LABS: Urine Blood Negative /uL (Negative); Urine Specific Gravity 1.014 (1.001-1.035)
[2021-10-18 13:25] LABS: Eosinophils # (auto) 0.1 10 ^3/uL (0-0.8); Hematocrit 30.1 % (36.0-46.0); Lymphocytes # (auto) 0.9 10 ^3/uL (0.4-5.4); Mean Corpuscular Hemoglobin 17.4 pg (28.0-32.0); Monocytes # (auto) 0.6 10 ^3/uL (0-1.3); Nucleated Red Blood Cells % 0.1 %
[2021-10-18 13:27] LABS: Basophils # (auto) 0.1 10 ^3/uL (0-0.2); Basophils % (auto) 1.1 % (0.0-2.0); Eosinophils % (auto) 1.9 % (0.0-7.0); Lymphocytes % (auto) 18.5 % (10.0-50.0); Monocytes % (auto) 11.6 % (0.0-12.0); Neutrophils # (auto) 3.3 10 ^3/uL (1.6-8.6); Neutrophils % (auto) 66.9 % (37.0-80.0); Red Blood Cells 5.18 10^6/uL (4.0-5.20); White Blood Cell 4.9 10^3/uL (4.4-10.8)
[2021-10-18 13:41] LABS: Albumin 3.7 g/dL (3.4-5.0); Calcium 8.9 mg/dL (8.5-10.1); Potassium 4.5 mmol/L (3.5-5.1)
[2021-10-18 13:48] LABS: BUN/Creatinine Ratio 22.4; Bilirubin, Total 0.4 mg/dL (0.2-1.0); Total Protein 7.1 g/dL (6.4-8.2)
[2021-10-18 14:41] LABS: Free T4 (Free Thyroxine) 1.1 ng/dL (0.89-1.76)
== END | disposition home or self-care (01) ==
LOC: LAB 10:22
PROVIDERS: ATTEND Internal Medicine Cardiovascular Disease
DX: I10 Essential (primary) hypertension (principal); E55.9 Vitamin D deficiency, unspecified; D51.3 Other dietary vitamin B12 deficiency anemia; D64.9 Anemia, unspecified; E11.9 Type 2 diabetes mellitus without complications; R00.2 Palpitations; R53.1 Weakness; R30.0 Dysuria
CPT/HCPCS: 36415; 80053; 80061; 81003; 82306; 82607; 83036; 84439; 84443; 85025

== ENCOUNTER → 2021-10-24 | Outpatient (CLI) | payer MEDICARE, MEDICAID | END | disposition home or self-care (01) | LOC: LAB 09:07 | PROVIDERS: ATTEND Internal Medicine Cardiovascular Disease | DX: Z79.899 Other long term (current) drug therapy (principal) | CPT/HCPCS: 80197; 82542 ==

== ENCOUNTER → 2021-11-11 | Outpatient (CLI) | payer MEDICARE, MEDICAID | END | disposition home or self-care (01) | LOC: LAB 09:17 | PROVIDERS: ATTEND Internal Medicine Cardiovascular Disease | DX: R70.0 Elevated erythrocyte sedimentation rate (principal); R79.82 Elevated C-reactive protein (CRP); Z79.899 Other long term (current) drug therapy | CPT/HCPCS: 85652; 86141 ==

== ENCOUNTER → 2021-11-13 | Outpatient (CLI) | payer MEDICARE, MEDICAID | END | disposition home or self-care (01) | LOC: LAB 13:04 | PROVIDERS: ATTEND Internal Medicine Cardiovascular Disease | DX: Z79.899 Other long term (current) drug therapy (principal) | CPT/HCPCS: 82542 ==

== ENCOUNTER → 2021-12-26 | Outpatient (CLI) | payer MEDICARE, MEDICAID ==
[~2021-12-26] VITALS: Ht 170.2 cm; Wt 72.6 kg
[~2021-12-26] MED LIST changes: +ADENOSINE 61 MG in GIVE UN-DILUTED 0 ML IV ONE; +ADENOSINE 90 MG/30 ML INJ IV ONE
== END | disposition home or self-care (01) ==
LOC: Rad HDHVI 13:31
PROVIDERS: ATTEND Internal Medicine Cardiovascular Disease
DX: I10 Essential (primary) hypertension (principal); E78.5 Hyperlipidemia, unspecified; I80.9 Phlebitis and thrombophlebitis of unspecified site; R60.9 Edema, unspecified; E78.00 Pure hypercholesterolemia, unspecified; Z94.1 Heart transplant status; Z82.49 Family history of ischemic heart disease and other diseases of the circulatory system; Z79.899 Other long term (current) drug therapy
CPT/HCPCS: 78452; 93005; 96374; 96375; A9500; J0153

== ENCOUNTER → 2022-08-04 | Outpatient (CLI) | payer MEDICARE, MEDICAID ==
[~2022-08-04] MED LIST changes: -ADENOSINE 61 MG in GIVE UN-DILUTED 0 ML IV ONE; -ADENOSINE 90 MG/30 ML INJ IV ONE; +FOLI-119 PO; -FOLI1TAB6 PO; -LISI-716 PO; +LISI10TA34 PO
== END | disposition home or self-care (01) ==
LOC: Rad HDHVI 14:46
PROVIDERS: ATTEND Internal Medicine Cardiovascular Disease
DX: J98.4 Other disorders of lung (principal); Q25.46 Tortuous aortic arch
CPT/HCPCS: 71046

== ENCOUNTER → 2022-12-11 | Outpatient (CLI) | payer MEDICARE, MEDICAID ==
[~2022-12-11] MED LIST changes: +MYCO250C4 PO; +PANT40T PO; +SIRO1TAB4 PO
== END | disposition home or self-care (01) ==
LOC: Rad HDHVI 15:57
PROVIDERS: ATTEND Internal Medicine Cardiovascular Disease
DX: I08.3 Combined rheumatic disorders of mitral, aortic and tricuspid valves (principal); I10 Essential (primary) hypertension; R06.02 Shortness of breath
CPT/HCPCS: 93306

== ENCOUNTER → 2022-12-17 | Outpatient (CLI) | payer MEDICARE, MEDICAID | END | disposition home or self-care (01) | LOC: Rad HDHVI 15:50 | PROVIDERS: ATTEND Internal Medicine Cardiovascular Disease | DX: R60.0 Localized edema (principal) | CPT/HCPCS: 93970 ==

== ENCOUNTER → 2023-09-03 | Outpatient (CLI) | payer MEDICARE, MEDICAID | END | disposition home or self-care (01) | LOC: Rad HDHVI 13:59 | PROVIDERS: ATTEND Internal Medicine Cardiovascular Disease | DX: I50.22 Chronic systolic (congestive) heart failure (principal) | CPT/HCPCS: 93306 ==

== ENCOUNTER → 2024-04-20 | Outpatient (CLI) | payer MEDICARE, OTHER ==
[~2024-04-20] VITALS: Ht 170.2 cm; Wt 62.6 kg
[~2024-04-20] MED LIST changes: +ADENOSINE 53 MG in GIVE UN-DILUTED 0 ML IV ONE; +ADENOSINE 90 MG/30 ML INJ IV ONE
== END | disposition home or self-care (01) ==
LOC: Rad HDHVI 13:06
PROVIDERS: ATTEND Internal Medicine Cardiovascular Disease
DX: I45.10 Unspecified right bundle-branch block (principal); R94.31 Abnormal electrocardiogram [ECG] [EKG]; I10 Essential (primary) hypertension; I82.409 Acute embolism and thrombosis of unspecified deep veins of unspecified lower extremity; I42.0 Dilated cardiomyopathy; E78.00 Pure hypercholesterolemia, unspecified; R06.02 Shortness of breath; A04.71 Enterocolitis due to Clostridium difficile, recurrent; Z94.1 Heart transplant status; Z82.49 Family history of ischemic heart disease and other diseases of the circulatory system
CPT/HCPCS: 78452; 93005; 93017; A9500; J0153; 96374; 96375

== ENCOUNTER 2024-09-28 15:10 | Outpatient (CLI) | payer MEDICARE, OTHER ==
[~2024-09-28 15:10] MED LIST changes: -ADENOSINE 53 MG in GIVE UN-DILUTED 0 ML IV ONE; -ADENOSINE 90 MG/30 ML INJ IV ONE
--- NOTE | 2024-09-28 15:55 | DVH ---
XY CHEST TWO VIEWS ROUTINE CLINICAL HISTORY: SOB COMPARISON: CT CT CHEST/AB/PL W CON- IV ONLY on DOS: 09/09/22, XY CHEST PORTABLE on DOS: 09/09/22, XY C HEST TWO VIEWS ROUTINE on DOS: 08/04/22 TECHNIQUE: Frontal and lateral view of the chest was obtained FINDINGS: Lines and Tubes: None Lungs: No focal consolidation. Pleura: No effusion. No pneumothorax. Mild hyperinflation of the lungs. Midline sternotomy wires with surgical clips are noted consistent with prior history of CABG. Cardiomediastinal contours: Unremarkable Bones: No acute osseous abnormality. IMPRESSION: No acute cardiopulmonary disease.
== END 2024-09-28 17:00 | disposition home or self-care (01) ==
LOC: Rad HDHVI 15:10
PROVIDERS: ATTEND Internal Medicine Cardiovascular Disease
DX: J40 Bronchitis, not specified as acute or chronic (principal); R06.02 Shortness of breath
CPT/HCPCS: 71046

== ENCOUNTER → 2024-10-14 | Outpatient (CLI) | payer MEDICARE, OTHER | END | disposition home or self-care (01) | LOC: Rad HDHVI 10:04 | PROVIDERS: ATTEND Internal Medicine Cardiovascular Disease | DX: I08.3 Combined rheumatic disorders of mitral, aortic and tricuspid valves (principal); R06.02 Shortness of breath | CPT/HCPCS: 93306 ==